=== PATIENT | female | born 1960 | race Caucasian/White ===

== ENCOUNTER → 2020-07-06 | Outpatient (CLI) | payer OTHER | LOC: M.CT 09:00 | DX: S34.114A Complete lesion of L4 level of lumbar spinal cord, initial encounter (principal); M51.26 Other intervertebral disc displacement, lumbar region; M47.817 Spondylosis without myelopathy or radiculopathy, lumbosacral region; X58.XXXA Exposure to other specified factors, initial encounter; Y93.89 Activity, other specified; Y92.89 Other specified places as the place of occurrence of the external cause; Y99.8 Other external cause status ==

== ENCOUNTER → 2021-01-18 | Outpatient (CLI) | payer OTHER ==
[2021-01-18 13:43] LABS: HEMATOCRIT 43.2 % (37.0-47.0); HEMOGLOBIN 14.3 gm/dL (12.0-15.0); MCH 30.3 pg (26.0-34.0); MCV 91.9 fL (80.0-100.0); MPV 7.2 fl. (7.2-11.1); RBC 4.7 mil/uL (4.20-5.00); WBC 8.8 thou/uL (4.0-11.0)
[2021-01-18 14:02] LABS: ALBUMIN 3.9 g/dL (3.4-5.0); ALKALINE PHOSPHATASE 75 U/L (46-116); ANION GAP 10 mmol/L (7-16); BUN 15 mg/dL (7-18); CALCIUM 9.4 mg/dL (8.5-10.1); CHLORIDE 101 mmol/L (98-107); CHOLESTEROL 201 mg/dL (<200); CO2 27 mmol/L (21-32); CREATININE 0.8 mg/dL (0.6-1.3); GLUCOSE 91 mg/dL (70-99); HDL CHOLESTEROL 58 mg/dL (>40); LDL CHOLESTEROL 123 mg/dL (<100); POTASSIUM 4.2 mmol/L (3.5-5.1); SGOT 23 U/L (15-37); SGPT 21 U/L (30-65); SODIUM 138 mmol/L (136-145); TC:HDL 3.5 Ratio (Not establshd); TOTAL BILIRUBIN 0.5 mg/dL (<0.1-1.0); TOTAL PROTEIN 7.8 g/dL (6.4-8.2); TRIGLYCERIDE 100 mg/dL (<150); VLDL 20 mg/dL (<40)
[2021-01-18 14:03] LABS: SERUM ASSESSMENT Clear
== END ==
LOC: M.LAB 13:23
PROVIDERS: ATTEND Internal Medicine
DX: Z00.00 Encounter for general adult medical examination without abnormal findings (principal)